=== PATIENT | male | born 1950 | race Hispanic/Latino ===

== ENCOUNTER 2018-05-20 06:34 | Emergency (ER) | payer OTHER ==
[2018-05-20 07:33] LABS: #Eosinphils 0.2 thou/uL (0.0-0.7); #Monocytes 0.6 thou/uL (0.11-0.59); #Neutrophils 4.4 thou/uL (1.40-6.50); %Basophils 0.6 % (0.0-1.0); %Eosinophils 3.1 % (0.0-10.0); %Lymphocytes 27.6 % (21.0-51.0); %Monocytes 8.1 % (0.0-10.0); %Neutrophils 60.6 % (42.0-75.0); Hemoglobin 14.8 g/dL (14.0-18.0); Mean Corpuscular HGB CONC 34.2 g/dL (32.0-36.0); Mean Corpuscular Hemoglobin 31.6 pg (27.0-31.0); Mean Corpuscular Volume 92.3 fL (78.0-98.0); Mean Platelet Volume 7.9 fL (7.4-10.4); Platelet Count 174 thou/uL (130-400); RBC Distribution Width 13.1 % (11.5-14.5); Red Blood Cell (RBC) Count 4.67 mill/uL (4.70-6.10); White Blood Cell (WBC) Count 7.3 thou/uL (4.8-10.8)
--- NOTE | 2018-05-20 07:41 | CT ---
HEAD CT WITHOUT CONTRAST: DATE: 05/20/18. COMPARISON: None. HISTORY: Facial drop which began 2 days ago, blurred vision. TECHNIQUE: Serial axial CT imaging is obtained at 5 mm intervals from vertex through the skull base without cont rast. FINDINGS: There is multifocal encephalomalacia within the left frontal lobe suggesting a prior infarction withi n the left MCA territory. The visualized paranasal sinuses and mastoid air cells are well aerated. There is no displaced calvarial fracture, intracranial hemorrhage, midline shift, or mass effect. 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 If there is clinical concern for an acute infarction, followup brain MRI is recommended. POS: JUAN
--- NOTE | 2018-05-20 07:55 | RAD ---
SINGLE VIEW CHEST: Date: 05/20/18 COMPARISON: None. HISTORY: Left-sided facial drooping and cough. FINDINGS: Single view of the chest shows a normal sized cardiomediastinal silhouette. There is no evidence of c onsolidation, mass, or pleural effusion. The bones are unremarkable. IMPRESSION: No evidence of acute cardiopulmonary disease. POS: OFF
[2018-05-20 07:58] LABS: Bilirubin Negative (Negative); Blood, Urine Small (Negative); Clarity CLEAR (Clear); Glucose, Urine (Dipstick) 500 mg/dL (Negative); Leukocyte Negative (Negative); Nitrite Negative (Negative); Protein, Urine (Dipstick) 30 mg/dL (Neg-Trace); Specific Gravity, Urine 1.013 (1.002-1.036)
[2018-05-20 07:58] LABS: CKMB 1.3 ng/mL (0-6.6); Troponin I Less than 0.010 ng/mL (< 0.028)
[2018-05-20 07:59] LABS: ALT (SGPT) 21 U/L (8-55); AST (SGOT) 14 U/L (5-34); Albumin 3.6 g/dL (3.4-4.8); Alkaline Phosphatase 101 U/L (40-150); Anion Gap 11 mmol/L (10-20); BUN (Urea Nitrogen) 13 mg/dL (8.4-25.7); Bilirubin, Total 0.7 mg/dL (0.2-1.2); Calc. Creatinine Clearance 0 mL/min (70-130); Calcium 8.8 mg/dL (7.8-10.44); Carbon Dioxide 23 mmol/L (23-31); Chloride 104 mmol/L (98-107); Estimated GFR-MDRD Greater than 90; Globulin 3.7 g/dL (2.4-3.5); Glucose 283 mg/dL (80-115); Magnesium 1.7 mg/dL (1.6-2.6); Potassium 3.8 mmol/L (3.5-5.1); Protein, Total 7.3 g/dL (5.8-8.1); Sodium 134 mmol/L (136-145)
[2018-05-20 08:00] LABS: Bacteria/HPF None Seen HPF (None Seen); Hyaline Casts/LPF 0-3 HYALINE CAST LPF (0-3 Hyaline); Squamous Epithelial None Seen HPF (0-3); WBC/HPF None Seen HPF (0-3)
[2018-05-20] MEDS ORDERED: Fluorescein Opthalmic Strip ONE (09:26)
[2018-05-20] MEDS ORDERED: Proparacaine 0.5% Opth 15 ML BOT ONE (09:26)
== END 2018-05-20 09:44 ==
LOC: EEVIPCON 06:34 → ERS 06:34
DX: G51.0 Bell's palsy (principal); I10 Essential (primary) hypertension; I25.10 Atherosclerotic heart disease of native coronary artery without angina pectoris; E78.5 Hyperlipidemia, unspecified; E11.9 Type 2 diabetes mellitus without complications; K21.9 Gastro-esophageal reflux disease without esophagitis; Z79.891 Long term (current) use of opiate analgesic; Z79.899 Other long term (current) drug therapy; Z79.4 Long term (current) use of insulin; Z79.82 Long term (current) use of aspirin
CPT/HCPCS: 36415; 70450; 71045; 80053; 81003; 81015; 82553; 83735; 83880; 84484; 85025; 93005

== ENCOUNTER 2020-05-16 15:00 | Emergency (ER) | payer OTHER ==
--- NOTE | 2020-05-16 15:52 | RAD ---
Exam: Chest one view HISTORY:Dyspnea. Correlate positive. Comparison: 05/20/2018 FINDINGS: Cardiac silhouette: Normal Aorta: Unremarkable Pulmonary vessels: Normal Costophrenic angles: Clear LUNGS: Patchy interstitial and alveolar opacities, without consolidation or mass. Pneumothorax: None Osseous abnormalities: None IMPRESSION: Patchy interstitial and alveolar opacities, due to infiltrate.
[2020-05-16 17:16] LABS: Mean Corpuscular HGB CONC 33.7 g/dL (32.0-36.0); Mean Corpuscular Hemoglobin 31.4 pg (27.0-31.0); Mean Corpuscular Volume 93.2 fL (78.0-98.0); Mean Platelet Volume 9.2 fL (7.4-10.4); Platelet Count 123 thou/uL (130-400); Red Blood Cell (RBC) Count 4.78 mill/uL (4.70-6.10); White Blood Cell (WBC) Count 10.3 thou/uL (4.8-10.8)
[2020-05-16] MEDS ORDERED: Acetaminophen 500 MG TAB ONE (17:26)
[2020-05-16] MEDS ORDERED: cefTRIAXone\\ROCEPHIN 1 GM VIAL ONE (17:31)
[2020-05-16] MEDS ORDERED: Azithromycin 500 MG VIAL ONE (17:31)
[2020-05-16 17:59] LABS: Band 11 % (5-11); CKMB 1.5 ng/mL (0-6.6); Lymphocytes 12 % (21-51); MDiff Complete? YES; Monocytes 4 % (0-10); Neutrophil 73 % (42-75); Platelet Morphology Comment Appears Decreased; RBC Morphology Normal
[2020-05-16 19:20] LABS: Albumin 3.1 g/dL (3.4-4.8)
[2020-05-16 19:21] LABS: Calcium 8.1 mg/dL (7.8-10.44); Chloride 105 mmol/L (98-107); Sodium 130 mmol/L (136-145)
[2020-05-16 19:22] LABS: Globulin 4.3 g/dL (2.4-3.5); Glucose 282 mg/dL (80-115); Protein, Total 7.4 g/dL (5.8-8.1)
[2020-05-16 19:24] LABS: Anion Gap 15 mmol/L (10-20); Bilirubin, Total 0.7 mg/dL (0.2-1.2); Carbon Dioxide 14 mmol/L (23-31)
[2020-05-16 19:25] LABS: Alkaline Phosphatase 44 U/L (40-110)
[2020-05-16 19:26] LABS: BUN (Urea Nitrogen) 33 mg/dL (8.4-25.7); Calc. Creatinine Clearance 0 mL/min (70-130); Estimated GFR-MDRD 68
[2020-05-16 19:27] LABS: AST (SGOT) 32 U/L (5-34)
[2020-05-16 19:28] LABS: ALT (SGPT) 25 U/L (8-55)
--- NOTE | 2020-05-19 14:31 | EKG ---
Test Reason : Blood Pressure : / mmHG Vent. Rate : 072 BPM Atrial Rate : 072 BPM P-R Int : 198 ms QRS Dur : 098 ms QT Int : 422 ms P-R-T Axes : 043 -32 061 degrees QTc Int : 462 ms Normal sinus rhythm Left axis deviation Anteroseptal infarct , age undetermined T wave abnormality, consider lateral ischemia Abnormal ECG Confirmed by YAS DENNIS ([id number]), editorial writer GENESIS LINDSEY ([id number]) on 05/19/2020 2:31:28 PM Referred By: Confirmed By:YAS Valente
== END 2020-05-16 23:09 | disposition short-term general hospital (02) ==
LOC: EDBD 15:00 → ERS 15:00 → EEVIPCON 15:00 → ERS 23:09
DX: U07.1 COVID-19 (principal); R09.02 Hypoxemia; I25.10 Atherosclerotic heart disease of native coronary artery without angina pectoris; I10 Essential (primary) hypertension; E78.5 Hyperlipidemia, unspecified; E11.9 Type 2 diabetes mellitus without complications; K21.9 Gastro-esophageal reflux disease without esophagitis; Z79.4 Long term (current) use of insulin; Z79.899 Other long term (current) drug therapy; Z79.891 Long term (current) use of opiate analgesic; Z79.82 Long term (current) use of aspirin
CPT/HCPCS: 36415; 71045; 80053; 82553; 83880; 84484; 85025; 87040; 93005; 94760; 96365; 96366; 96367; J0456; J0696

== ENCOUNTER 2020-11-05 16:13 | Emergency (ER) | payer OTHER ==
[2020-11-05 16:55] LABS: #Eosinphils 0.2 thou/uL (0.0-0.7); #Monocytes 0.7 thou/uL (0.11-0.59); #Neutrophils 4.5 thou/uL (1.40-6.50); %Basophils 0.6 % (0.0-1.0); %Eosinophils 2.5 % (0.0-10.0); %Lymphocytes 27.3 % (21.0-51.0); %Monocytes 8.9 % (0.0-10.0); %Neutrophils 60.7 % (42.0-75.0); Mean Corpuscular Hemoglobin 28.3 pg (27.0-31.0); Mean Corpuscular Volume 88.4 fL (78.0-98.0); Mean Platelet Volume 8.2 fL (7.4-10.4); Platelet Count 167 thou/uL (130-400); RBC Distribution Width 15.6 % (11.5-14.5); Red Blood Cell (RBC) Count 3.88 mill/uL (4.70-6.10); White Blood Cell (WBC) Count 7.4 thou/uL (4.8-10.8)
[2020-11-05 17:18] LABS: ALT (SGPT) 13 U/L (8-55); AST (SGOT) 12 U/L (5-34); Albumin 3.7 g/dL (3.4-4.8); Alkaline Phosphatase 65 U/L (40-110); Anion Gap 15 mmol/L (10-20); BUN (Urea Nitrogen) 22 mg/dL (8.4-25.7); Bilirubin, Total 0.6 mg/dL (0.2-1.2); Calc. Creatinine Clearance 0 mL/min (70-130); Calcium 8.9 mg/dL (7.8-10.44); Carbon Dioxide 24 mmol/L (23-31); Chloride 105 mmol/L (98-107); Globulin 4.2 g/dL (2.4-3.5); Glucose 170 mg/dL (83-110); Potassium 3.8 mmol/L (3.5-5.1); Protein, Total 7.9 g/dL (5.8-8.1); Sodium 140 mmol/L (136-145)
--- NOTE | 2020-11-05 17:24 | ULT ---
LEFT LOWER EXTREMITY VENOUS DUPLEX EXAM: History: Left leg pain and swelling. FINDINGS: Real-time color doppler evaluation of the left lower extremity was performed from groin to calf. This includes the evaluation of the common femoral, superficial, profunda femoral, saphenous, popliteal, and posterior tibial veins. This shows a patent deep venous system. There is normal compressibility and augmentation. There is no evidence of DVT. IMPRESSION: No evidence of DVT of the left lower extremity. POS: NICANOR
--- NOTE | 2020-11-05 17:26 | RAD ---
PORTABLE CHEST: History: Left lower extremity swelling. Comparison: 05-16-2020 FINDINGS: Heart size appears slightly enlarged. No signs of overt failure or focal infiltrates. IMPRESSION: Cardiomegaly. POS: NICANOR
== END 2020-11-05 18:14 ==
LOC: ERS 16:13
DX: L03.116 Cellulitis of left lower limb (principal); R06.00 Dyspnea, unspecified; I10 Essential (primary) hypertension; E11.9 Type 2 diabetes mellitus without complications; K21.9 Gastro-esophageal reflux disease without esophagitis; I25.10 Atherosclerotic heart disease of native coronary artery without angina pectoris
CPT/HCPCS: 36415; 71045; 80053; 83605; 83880; 84484; 85025; 87040; 93005